=== PATIENT | female | born 1990 | race American Indian/Alaskan Native ===

== ENCOUNTER 2021-09-03 07:16 | Emergency (ER) | payer SELFPAY ==
--- NOTE | 2021-09-03 07:54 | Emergency Department Report ---
HPI - General Chief Complaint: Psych Time Seen by Provider: 09/03/21 07:39 - HPI HPI: Room 12 C The patient is a 31-year-old female present with a chief complaint of suicidal ideation. Patient has a history of schizophrenia states she is felt suicidal for 1 day. Patient initially states she was having visual hallucinations but then later in the interview denies this. Patient denies any attempts at harming herself and states she does not have a plan. ED Past Medical Hx - Past Medical History Hx Psychiatric Treatment: Yes (Schizophrenia) - Surgical History Past Surgical History?: No - Family History Family history: no significant - Social History Smoking Status: Current Every Day Smoker Substance Use Type: Alcohol (Occasional), Cocaine, Marijuana ED Review of Systems ROS: Stated complaint: PSYCH Other details as noted in HPI Constitutional: no symptoms reported Eyes: denies: eye pain ENT: denies: throat pain Respiratory: no symptoms reported Cardiovascular: denies: chest pain Endocrine: no symptoms reported Gastrointestinal: denies: abdominal pain Genitourinary: denies: dysuria Musculoskeletal: denies: back pain Neurological: denies: headache Psychiatric: suicidal thoughts Physical Exam - Physical Exam Vital Signs: Vital Signs 09/03/21 07:18 Temperature 97.5 F L Pulse Rate 105 H Respiratory 20 Rate Blood Pressure 164/100 [Left] O2 Sat by Pulse 99 Oximetry Physical Exam: GENERAL: The patient is well-developed well-nourished female sitting in chair talking to herself. [] HEENT: Normocephalic. Atraumatic. Extraocular motions are intact. Patient has moist mucous membranes. NECK: Supple. Trachea midline CHEST/LUNGS: Clear to auscultation. There is no respiratory distress noted. HEART/CARDIOVASCULAR: Regular. There is no tachycardia. There is no gallop rub or murmur. ABDOMEN: Abdomen is soft, nontender. Patient has normal bowel sounds. SKIN: There is no rash. There is no edema. There is no diaphoresis. NEURO: The patient is awake and alert. The patient is cooperative. The patient has no focal neurologic deficits. The patient has normal speech. GCS 15 MUSCULOSKELETAL: There is no evidence of acute injury. ED Course Vital Signs 09/03/21 07:18 Temperature 97.5 F L Pulse Rate 105 H Respiratory 20 Rate Blood Pressure 164/100 [Left] O2 Sat by Pulse 99 Oximetry ED Medical Decision Making - Lab Data Result diagrams: 09/04/21 18:43 09/03/21 07:43 - Differential Diagnosis Suicidal ideation Critical care attestation.: If time is entered above; I have spent that time in minutes in the direct care of this critically ill patient, excluding procedure time. ED Disposition Clinical Impression: Suicidal ideation Disposition: [facility] Is pt being admited?: No Does the pt Need Aspirin: No Condition: Stable
[2021-09-03 07:57] LABS: Basophils # (Auto) 0.1 K/mm3 (0.0-0.1); Eosinophils % (Auto) 0.3 % (0.0-4.3); Hematocrit 40.1 % (30.3-42.9); Hemoglobin 12.5 gm/dl (10.1-14.3); Lymphocytes # (Auto) 2.2 K/mm3 (1.2-5.4); Mean Corpuscular HGB Conc 31 % (30-34); Mean Corpuscular Volume 77 fl (79-97); Monocytes # (Auto) 0.9 K/mm3 (0.0-0.8); Monocytes % (Auto) 8.3 % (0.0-7.3); Platelet Count 307 K/mm3 (140-440); Red Blood Count 5.22 M/mm3 (3.65-5.03); Red Cell Distribution Width 18.4 % (13.2-15.2)
[2021-09-03 08:14] LABS: Blood Urea Nitrogen 10 mg/dL (7-17); Calcium 8.9 mg/dL (8.4-10.2); Hemolysis Index 0
[2021-09-03 08:21] LABS: BUN/Creatinine Ratio 20
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
[2021-09-03] MEDS ORDERED: LORazepam 1 MG TAB PO ONE (20:20)
[2021-09-04] MEDS ORDERED: HALOPERIDOL LACTATE 5 MG/1 ML INJ IM ONE (02:01)
--- NOTE | 2021-09-04 09:52 | Progress Note ---
Subjective - Reason for Consult Consult date: 09/04/21 Reason for consult: mental health evaluation - Chief Complaint Chief complaint: The patient was seen this morning in the seclusion room. Te patient continues to present with disorganized thoughts, and pressured speech. Per nurse, "Unable to refer the pt to [facility] and start the inpatient psyc referral process without UA and UDS. This stabilizing machine operator is aware from the notes from overnight that the pt was aggressive, uncooperative and urinated on floor." REVIEW OF SYSTEMS Constitutional: Negative for weight loss ENT: Negative for stridor Respiratory: Negative for cough or hemoptysis All other systems reviewed and are negative MENTAL STATUS EXAMINATION General Appearance and Behavior: Age appropriate, dressed appropriately, calm and uncooperative Cooperation: cooperative Psychomotor Behavior: psychomotor normal Mood:hallucinations Affect and affective range: congruent with stated mood Thought Process: goal oriented Thought Content: hallucinations, suicidal Speech: Normal volume, Regular rate and rhythm, Intellectual Functioning: Average Suicidal Ideation: Yes Homicidal Ideation: Denies Hallucinations: auditory/visual Delusions: None elicited Impulse Control: Unimpaired Insight and Judgment: limited insight and poor judgment, Memory: Normal Attention: divided Orientation: Alert, oriented Assessment and Plan (1) Schizophrenia (2) Treatment plan continue 1013 Start Zyprexa 5mg po BID Depakote 125mg po BID Continue previous prescribed meds Risks, benefits and alternatives of medications discussed with the patient, questions answered and consent obtained from patient. PSYCHOTHERAPY: Supportive psychotherapy provided MEDICAL: Per primary team DELIRIUM PRECAUTIONS: Please re-orient patient frequently, keep lights on during the day, and minimize benzodiazepines and opiates as these medications could worsen patient's confusion. 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 Will follow. Thank you for the consult. Please contact with any questions and/or concerns. Case staffed with Dr. Martínez Medications and Allergies Mental Status Exam - Vital signs Last Vital Signs Temp 97.5 F L 09/03/21 19:36 Pulse 102 H 09/03/21 19:36 Resp 18 09/03/21 19:36 BP 107/58 09/03/21 19:36 Pulse Ox 99 09/03/21 19:36
[2021-09-04] MEDS: DIVALPROEX DR 125 MG TAB PO SCH ×2 (10:18→22:05)
[2021-09-04 10:50] LABS: Bacteria,Urine 1+ /HPF (Negative); Bilirubin,Urine NEG (Negative); Blood,Urine MOD (Negative); Color,Urine Yellow (Yellow); Mucus,Urine FEW /HPF; Protein,Urine <15 mg/dL mg/dL (Negative); Urobilinogen,Urine < 2.0 mg/dL (<2.0)
[2021-09-04 10:52] LABS: Benzodiazepines Screen,Urine Negative; Cannabinoid Screen,Urine Negative; Methadone Screen,Urine Negative; Opiate Screen,Urine Negative
[2021-09-04 11:19] LABS: Amphetamine Screen,Urine Positive; Cocaine Screen,Urine Positive
--- NOTE | 2021-09-04 11:19 | Emergency Department Report ---
Blank Doc - Documentation Documentation: 31-year-old female with schizophrenia. Continues to have disorganized thoughts and aggressive behavior. Required Haldol IM last night. Currently on 1013. p.o. meds initiated by psychiatry awaiting placement. Covid test ordered
[2021-09-04 18:57] LABS: Basophils % (Auto) 0.5 % (0.0-1.8); Eosinophils # (Auto) 0.3 K/mm3 (0.0-0.4); Hematocrit 36.3 % (30.3-42.9); Hemoglobin 11.6 gm/dl (10.1-14.3); Lymphocytes # (Auto) 2.6 K/mm3 (1.2-5.4); Lymphocytes % (Auto) 38.4 % (13.4-35.0); Mean Corpuscular HGB Conc 32 % (30-34); Mean Corpuscular Volume 77 fl (79-97); Monocytes # (Auto) 0.8 K/mm3 (0.0-0.8); Monocytes % (Auto) 11.5 % (0.0-7.3); Platelet Count 256 K/mm3 (140-440); Red Blood Count 4.72 M/mm3 (3.65-5.03); Red Cell Distribution Width 18.6 % (13.2-15.2)
[2021-09-05] MEDS ORDERED: diphenhydrAMINE 50 MG/ML VIAL IM PRN (07:27)
[2021-09-05] MEDS ORDERED: HALOPERIDOL LACTATE 5 MG/1 ML INJ IM PRN (07:27)
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
[2021-09-05] MEDS: DIVALPROEX DR 250 MG TAB PO SCH ×2 (10:03→22:06)
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
[2021-09-05] MEDS ORDERED: ACETAMINOPHEN 325 MG TAB PO PRN (21:09)
[2021-09-06 02:14] VITALS: BP 118/66
[2021-09-06] MEDS: DIVALPROEX DR 250 MG TAB PO SCH (10:00)
--- NOTE | 2021-09-06 10:42 | Progress Note ---
Subjective - Reason for Consult Consult date: 09/06/21 Reason for consult: mental health evaluation - Chief Complaint Chief complaint: The patient was seen this morning. She reports doing well she denies any current suicidal/homicidal ideation and denies hallucinations. REVIEW OF SYSTEMS Constitutional: Negative for weight loss ENT: Negative for stridor Respiratory: Negative for cough or hemoptysis All other systems reviewed and are negative MENTAL STATUS EXAMINATION General Appearance and Behavior: Age appropriate, dressed appropriately, calm and uncooperative Cooperation: cooperative Psychomotor Behavior: psychomotor normal Mood:"OK" Affect and affective range: congruent with stated mood Thought Process: goal oriented Thought Content: Not suicidal Speech: Normal volume, Regular rate and rhythm, Intellectual Functioning: Average Suicidal Ideation: Denies Homicidal Ideation: Denies Hallucinations: Denies Delusions: None elicited Impulse Control: Unimpaired Insight and Judgment: limited insight and fair judgment, Memory: Normal Attention: divided Orientation: Alert, oriented Assessment and Plan (1) Schizophrenia (2) Treatment plan Discontinue 1013 Continue Zyprexa 5mg po BID Continue Depakote 250mg po BID Continue previous prescribed meds Risks, benefits and alternatives of medications discussed with the patient, questions answered and consent obtained from patient. PSYCHOTHERAPY: Supportive psychotherapy provided MEDICAL: Per primary team DELIRIUM PRECAUTIONS: Please re-orient patient frequently, keep lights on during the day, and minimize benzodiazepines and opiates as these medications could worsen patient's confusion. 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 Director Of Casework Department will provide patient with psychiatric out-patient resources Will sign off. Please contact with any questions and/or concerns. Case staffed with Dr. Martínez Medications and Allergies Mental Status Exam - Vital signs Last Vital Signs Temp 98.4 F 09/06/21 02:03 Pulse 89 09/06/21 02:03 Resp 18 09/06/21 02:03 BP 118/66 09/06/21 02:03 Pulse Ox 98 09/06/21 02:03
== END 2021-09-06 11:54 | disposition home or self-care (01) ==
LOC: ED 07:16
DX: F20.9 Schizophrenia, unspecified (principal); R45.851 Suicidal ideations; F17.200 Nicotine dependence, unspecified, uncomplicated; F14.10 Cocaine abuse, uncomplicated; F12.10 Cannabis abuse, uncomplicated; Z20.822 Contact with and (suspected) exposure to COVID-19
CPT/HCPCS: 36415; 80048; 80307; 81001; 85025; 96372; 99284; J1200; J1630; U0003; 80320; G0480